=== PATIENT | female | born 1940 | race Caucasian/White ===

== ENCOUNTER → 2016-06-14 | Outpatient (CLI) | payer OTHER ==
--- NOTE | 2016-06-14 14:38 | MR ---
EXAMINATION TYPE: MR cervical spine wo con DATE OF EXAM ORDERED: 06/14/2016 1:35 PM HISTORY: M54.2 cervical pain. TECHNOLOGIST HISTORY AT TIME OF EXAM: Neck pain COMPARISON: None. TECHNIQUE: Multiplanar, multiecho imaging of the cervical spine was obtained without contrast on a 1 .5 crystal magnet. FINDINGS: Paravertebral soft tissues are normal. There is a reversal of the normal cervical lordosis. There are mild retrogradely cc of C4 on C5, C5 o n C6 and C6 on C7. There is a normal craniocervical junction. Cord signal is normal. At C2-C3, no definite abnormality is seen. At C3-C4, there is disc space loss and disc desiccation. There is bilateral intervertebral foraminal narrowing, greater on the left than the right. There is a mixed spondylitic bar present posteriorly s lightly eccentric towards the right with cord contact but without compression. There is mild uncovert ebral joint disease. At C4-C5, there is severe disc space loss and disc desiccation. There is bilateral intervertebral for aminal narrowing. There is a mixed spondylitic bar present posteriorly with cord contact and mild com pression. There is mild uncovertebral joint disease. The facets are unremarkable. At C5-C6, there is severe disc space loss. There is bilateral intervertebral foraminal narrowing, wor se on the right than the left. There is a tiny central spur. This is causing cord contact and mild co mpression. There is uncovertebral joint disease. At C6-C7, there is severe disc space loss and disc desiccation. There is a mixed spondylitic bar pres ent posteriorly deforming the thecal sac without cord contact. There is bilateral intervertebral fora vasquez narrowing. There is uncovertebral joint disease. At C7-T1, no definite abnormality is seen. Note is made of concentric disc herniations at T1-T2 and T2-3. IMPRESSION: 1. 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 2. MULTILEVEL INTERVERTEBRAL FORAMINAL NARROWING. 3. VARYING DEGREES OF CENTRAL CANAL COMPROMISE MOST MARKED AT C3-4 AND C4-5. 4. BROAD-BASED PROTRUSIONS, T1-2 AND T2-3.
== END | disposition home or self-care (01) ==
LOC: RADMRIMAIN 12:55
PROVIDERS: ATTEND Psychiatry & Neurology Neurology
DX: M99.71 Connective tissue and disc stenosis of intervertebral foramina of cervical region (principal); M50.30 Other cervical disc degeneration, unspecified cervical region; M47.812 Spondylosis without myelopathy or radiculopathy, cervical region; M48.8X2 Other specified spondylopathies, cervical region; G44.309 Post-traumatic headache, unspecified, not intractable
CPT/HCPCS: 72141

== ENCOUNTER → 2016-12-01 | Outpatient (CLI) | payer OTHER, MEDICARE, BC ==
--- NOTE | 2016-12-01 14:34 | MR ---
EXAMINATION TYPE: MR lumbar spine wo con DATE OF EXAM: 12/01/2016 COMPARISON: NONE HISTORY: 76-year-old female with low back pain TECHNIQUE: Multiplanar, multisequence images of the lumbar spine were acquired. FINDINGS: Vertebral body heights are preserved. No suspicious bone marrow replacement. There are prominent edematous Modic type I endplate changes at L4-L5 associated with moderate degenerative disc disease. Additional levels of moderate degenerative disc disease particularly from L1 through L3 levels. Hypertrophic facet arthropathy mid to lower lumbar spine with grade 1 anterolisthesis at L5-S1. Trace grade 1 retrolisthesis at L1-L2 and L2-L3. Conus medullaris is normal. Bilateral renal cysts measuring up to 2.3 cm. No prevertebral or paravertebral soft tissue abnormalit y seen. At T12-L1, no canal or foraminal stenosis. At L1-L2, there is facet degenerative change with grade 1 retrolisthesis and diffuse disc bulge. This impresses on the ventral thecal sac without significant spinal canal stenosis. However, this does re sult in moderate left and mild right neuroforaminal stenosis. At L2-L3, there is disc osteophyte complex with trace retrolisthesis, facet arthropathy, ligamentum f lavum thickening. Minimal impression into the ventral thecal sac without significant spinal canal maya nosis. Changes as noted mild left and moderate right neuroforaminal stenosis. At L3-L4, there is hypertrophic facet arthropathy with ligamentum flavum thickening and diffuse bulgi ng disc. Changes result in mild to moderate spinal canal stenosis. There is also vnik-df-soifegwu sylvester ateral neuroforaminal stenosis. Disc material may contact the traversing left L4 nerve root. At L4-L5, diffuse disc bulge with ligamentum flavum thickening and hypertrophic facet arthropathy. No spinal canal stenosis. Changes result in possibly moderate to severe left and minimal right neurofor aminal stenosis. At L5-S1, hypertrophic facet arthropathy with grade 1 anterolisthesis and bulging disc. Changes resul t in mild right and moderate left neuroforaminal stenosis. No spinal canal stenosis. Small sacral Tarlov cysts are noted. IMPRESSION: 1. Moderate to advanced multilevel disc/endplate degenerative change. There are edematous Modic type I endplate changes at L4-L5. 2. Additional hypertrophic facet arthropathy and ligamentum flavum thickening greatest in the mid to lower lumbar spine. 3. Resultant trace grade 1 retrolistheses at L1-L2 and L2-L3 and grade 1 anterolisthesis at L5-S1. 4. Combination of disc bulge, facet arthropathy, ligamentum flavum thickening causes [id number] spinal canal stenosis at L3-L4. No high-grade canal compromise. 5. Variable neural foraminal stenoses as outlined above, moderate on the left at L1-L2, moderate on t he right at L2-L3, moderate on the left at L5-S1, and possibly moderate to severe on the left at L4-L 5. Disc material at L3-L4 may also contact the traversing left L4 nerve root.
== END | disposition home or self-care (01) ==
LOC: RADMRIMAIN 13:02
PROVIDERS: ATTEND Psychiatry & Neurology Neurology
DX: M48.06 Spinal stenosis, lumbar region (principal); M99.73 Connective tissue and disc stenosis of intervertebral foramina of lumbar region; M51.26 Other intervertebral disc displacement, lumbar region; M43.17 Spondylolisthesis, lumbosacral region; M47.816 Spondylosis without myelopathy or radiculopathy, lumbar region; M46.86 Other specified inflammatory spondylopathies, lumbar region; M24.28 Disorder of ligament, vertebrae
CPT/HCPCS: 72148

== ENCOUNTER 2019-05-08 06:22 | Day surgery (SDC) | payer BC, MEDICARE ==
[2019-05-03 16:19] VITALS: BMI 29.2
[~2019-05-08 06:22] MED LIST: DEXAMETHASONE SOD PHOSPHATE 10 MG/ML 1 ML VIAL IV ONE; HYDROmorphone 0.5 MG/0.5 ML SYRINGE IVP PRN; MIDAZOLAM 2 MG/2 ML VIAL IV PRN; ONDANSETRON 4 MG/2 ML VIAL IVP ONE
[2019-05-08] MEDS ORDERED: LIDOCAINE 1% 20 ML VIAL (10MG/ML) FOR IV START INTRADERMA ONE (07:01)
[2019-05-08] MEDS: LACTATED RINGERS 1,000 ML IV SCH ×2 (07:02→11:39)
[2019-05-08] MEDS ORDERED: fentaNYL (PF) 50 MCG/ML 2 ML AMP ONE (08:25)
[2019-05-08] MEDS ORDERED: MIDAZOLAM 2 MG/2 ML VIAL ONE (08:25)
[2019-05-08] MEDS ORDERED: PROPOFOL 10 MG/ML 20 ML VIAL IV ONE (08:25)
[2019-05-08] MEDS ORDERED: BACITRACIN 500 UNIT/GM OINT 28.4 GM TUBE TOPICAL ONE (08:50)
[2019-05-08] MEDS ORDERED: EPINEPHRINE IV ONE ×2 (08:50)
[2019-05-08] MEDS ORDERED: SODIUM CHLORIDE 0.9% IV ONE ×2 (08:50)
--- NOTE | 2019-05-08 09:10 | P.OP ---
Date of Procedure: 05/08/19 Preoperative Diagnosis: Grade 3 cystocele Postoperative Diagnosis: Same Procedure(s) Performed: Anterior vaginal colporrhaphy Anesthesia: spinal Surgeon: Cailin Weathers [employer] Occupational Therapist #1: Miri Mayo Estimated Blood Loss (ml): 10 Pathology: other (Vaginal mucosa) Condition: stable Disposition: floor Indications for Procedure: This is an 78-year-old female who complains of frequent urinary tract infections, urinary frequency and pressure. She had been seen by Dr. Berman who does not recommend a sling at this time. She declines pessary and wishes definitive surgical treatment. Operative Findings: Grade 3 cystocele is noted. After the surgery is complete, there is also noted and enterocele/rectocele approximately grade 1. Description of Procedure: The patient is taken to the operating room where she is placed in the dorsal lithotomy position. She is prepped and draped in the normal sterile fashion after spinal anesthesia is given. A weighted speculum was placed in the patient's vagina and a right angle retractor was used to visualize the vaginal cuff. The edges of the vaginal cuff were grasped with 2 Allis clamps. Injection of 1 amp of epinephrine to 150 mL of normal saline was injected underneath the vaginal mucosa upwards towards the urethra. Next a small transverse incision was made between the 2 Allis clamps with a scalpel. Next Metzenbaum scissors are used to dissect underneath the vaginal mucosa upwards towards the urethra. The edges of the vaginal mucosa are held with Allis clamps. The cystocele is reduced away from the vaginal mucosa with sharp and blunt dissection. Reduced, the cystocele was reduced with 0 Vicryl suture in interrupted [id number] stitches. The edges of the vaginal mucosa are trimmed. Next the vaginal mucosa is sutured with 0 Vicryl suture in a running locked fashion. Good hemostasis was noted. There is noted to be an enterocele/rectocele proximally grade 1 after repair of the anterior wall. Loyola catheter is placed with clear urine noted. X vaginal packing with one- inch iodoform gauze with bacitracin ointment is placed within the vaginal vault. All incisions are removed from the field. All sponge counts are correct. All needle counts are correct. The patient is then taken to the recovery room in stable condition.
[2019-05-08] MEDS ORDERED: diphenhydrAMINE 50 MG/ML 1 ML VIAL IVP PRN (10:07)
[2019-05-08] MEDS ORDERED: MONTELUKAST 10 MG TAB PO SCH (10:07)
[2019-05-08] MEDS ORDERED: ONDANSETRON 4 MG/2 ML VIAL IVP PRN (10:07)
[2019-05-08] MEDS ORDERED: IBUPROFEN 600 MG TAB PO PRN (10:07)
[2019-05-08] MEDS ORDERED: GABAPENTIN 100 MG CAP PO SCH (10:07)
[2019-05-08] MEDS ORDERED: KETOROLAC 30 MG/ML 1 ML VIAL IVP PRN (10:07)
[2019-05-08] MEDS ORDERED: SIMETHICONE 80 MG CHEWABLE PO PRN (10:07)
[2019-05-08] MEDS ORDERED: METOCLOPRAMIDE 5 MG/ML 2 ML VIAL IVP PRN (10:07)
[2019-05-08] MEDS ORDERED: PANTOPRAZOLE 40 MG TABLET PO SCH (10:07)
[2019-05-08] MEDS ORDERED: SERTRALINE 50 MG TAB PO SCH (10:07)
[2019-05-08] MEDS: SENNOSIDES-DOCUSATE SODIUM 1 EACH TAB PO SCH ×2 (11:24→21:14)
[2019-05-08] MEDS ORDERED: GABAPENTIN 400 MG CAP PO SCH (21:00)
[2019-05-08] MEDS ORDERED: VERAPAMIL SR 240 MG TABLET.ER PO SCH (21:00)
[2019-05-08] MEDS ORDERED: PRAVASTATIN SODIUM 40 MG TAB PO SCH (21:00)
[2019-05-08 22:40] VITALS: RESP 16
[2019-05-09] MEDS ORDERED: PANTOPRAZOLE 40 MG TABLET PO SCH (07:30)
[2019-05-09 07:40] LABS: Basophils % (A) 0 %; Eosinophils % (A) 0 %; HCT 36.1 % (34.0-46.0); HGB 11.4 gm/dL (11.4-16.0); Lymphocytes % (A) 16 %; MCH 27.3 pg (25.0-35.0); MCHC 31.5 g/dL (31.0-37.0); MCV 86.6 fL (80.0-100.0); Mean Platelet Volume 7.7; Monocytes # (A) 0.7 k/uL (0-1.0); Monocytes % (A) 6 %; Neutrophils # (A) 9.8 k/uL (1.3-7.7); Neutrophils % (A) 76 %; Platelet Count 259 k/uL (150-450); RBC 4.17 m/uL (3.80-5.40); RDW 14.7 % (11.5-15.5); WBC 12.9 k/uL (3.8-10.6)
[2019-05-09 08:03] VITALS: BP 133/78; PULSE 66; TEMP 97.2
[2019-05-09] MEDS ORDERED: ACETAMINOPHEN TAB 325 MG TAB PO PRN (08:41)
--- NOTE | 2019-05-09 08:42 | P.DS ---
Providers Date of admission: 05/08/2019 Expected date of discharge: 05/09/19 Attending physician: Cailin Weathers Primary care physician: Arden Thomas MD Hospital Course: This is an 78-year-old female who underwent a anterior vaginal colporrhaphy on 05/08/2019. Postoperatively she has done well. Her catheter and her packing were removed this morning. She denies any pain. She has urinated a small amount approximately 50 mL this morning. Bleeding has been minimal. Vital signs are stable. Abdomen is soft with positive bowel sounds 4. Lashaun-pad shows very scant serosanguineous discharge. Extremities show negative Homans. Impression is status post anterior vaginal colporrhaphy postoperative day #1. Plan is to discharge home after she is able to urinate an adequate amount. She will be discharged home and instructed to follow-up in the office in 1 week for a postoperative check. She is advised no heavy lifting squatting stooping. She also is instructed no tub baths but may shower. No intercourse. She may take [id number] pain medication as needed for any discomfort. Procedures: Anterior vaginal colporrhaphy on 05/08/2019 Patient Condition at Discharge: Stable Plan - Discharge Summary Discharge Rx Participant: Yes New Discharge Prescriptions: No Action Verapamil HCl [Verapamil ER] 240 mg PO HS Pravastatin Sodium [Pravachol] 40 mg PO HS Omeprazole [PriLOSEC] 40 mg PO DAILY Gabapentin [Neurontin] 400 mg PO HS Tamoxifen [Nolvadex] 20 mg PO DAILY Sertraline [Zoloft] 50 mg PO DAILY Montelukast [Singulair] 10 mg PO DAILY Gabapentin [Neurontin] 100 mg PO QAM Cannabidiol (Cbd) Extract [Epidiolex] 0 mg PO DAILY PRN PRN Reason: Pain Discharge Medication List Cannabidiol (Cbd) Extract [Epidiolex] 0 mg PO DAILY PRN 05/03/19 [History] Gabapentin [Neurontin] 100 mg PO QAM 05/03/19 [History] Gabapentin [Neurontin] 400 mg PO HS 05/03/19 [History] Montelukast [Singulair] 10 mg PO DAILY 05/03/19 [History] Omeprazole [PriLOSEC] 40 mg PO DAILY 05/03/19 [History] Pravastatin Sodium [Pravachol] 40 mg PO HS 05/03/19 [History] Sertraline [Zoloft] 50 mg PO DAILY 05/03/19 [History] Tamoxifen [Nolvadex] 20 mg PO DAILY 05/03/19 [History] Verapamil HCl [Verapamil ER] 240 mg PO HS 05/03/19 [History] Follow up Appointment(s)/Referral(s): Cailin Weathers DO [Doctor of Osteopathic Medicine] - 1 Week Activity/Diet/Wound Care/Special Instructions: No heavy lifting. May shower, but no tub baths. No intercourse. Discharge Disposition: HOME SELF-CARE
[2019-05-09] MEDS ORDERED: MONTELUKAST 10 MG TAB PO SCH (09:00)
[2019-05-09] MEDS ORDERED: TAMOXIFEN 10 MG TAB PO SCH (09:00)
[2019-05-09] MEDS ORDERED: SERTRALINE 50 MG TAB PO SCH (09:00)
[2019-05-09] MEDS ORDERED: GABAPENTIN 100 MG CAP PO SCH (09:00)
== END 2019-05-09 10:00 | disposition home or self-care (01) ==
LOC: OR 06:22 → EDSTATUS 07:30 → 4FBP 09:22 → OR 05-09 10:00
PROVIDERS: ATTEND Obstetrics & Gynecology
DX: N81.10 Cystocele, unspecified (principal); N30.20 Other chronic cystitis without hematuria; N81.6 Rectocele; K21.9 Gastro-esophageal reflux disease without esophagitis; F41.9 Anxiety disorder, unspecified; F32.9 Major depressive disorder, single episode, unspecified; E78.00 Pure hypercholesterolemia, unspecified; I10 Essential (primary) hypertension; J30.2 Other seasonal allergic rhinitis; Z79.810 Long term (current) use of selective estrogen receptor modulators (SERMs); Z79.82 Long term (current) use of aspirin; Z79.899 Other long term (current) drug therapy; Z82.49 Family history of ischemic heart disease and other diseases of the circulatory system; Z90.710 Acquired absence of both cervix and uterus; Z85.3 Personal history of malignant neoplasm of breast; Z98.890 Other specified postprocedural states; Z90.89 Acquired absence of other organs; Z87.440 Personal history of urinary (tract) infections; Z90.49 Acquired absence of other specified parts of digestive tract; Z96.643 Presence of artificial hip joint, bilateral; Z96.653 Presence of artificial knee joint, bilateral
CPT/HCPCS: 86900; 86901; 85025; 86850; 88302; 57240; J0171; J1100; J0690; J2405